=== PATIENT | male | born 1975 | race Caucasian/White ===

== ENCOUNTER 2021-04-25 09:59 | Emergency (ER) | payer OTHER ==
--- NOTE | 2021-04-25 10:06 | NUR ---
PT REPORTS TO HAVING A WOUND ON HIS BUTTOCK. WAS REQUESTING A FEMALE PROVIDER AND INFORMED AT THIS TIME THE EDMD AND ED PA ARE MALE. PT STATED HE WOULD PREFER TO LEAVE INSTEAD OF BEING SEEN. PT THEN LEFT TRIAGE AND WALKED OUT OF ED LOBBY
== END 2021-04-25 10:24 | disposition left against medical advice (07) ==
LOC: ER 09:59
DX: Z53.21 Procedure and treatment not carried out due to patient leaving prior to being seen by health care provider (principal)

== ENCOUNTER 2021-04-25 13:23 | Emergency (ER) | payer SELFPAY ==
[~2021-04-25] VITALS: Ht 180.3 cm; Wt 90.9 kg
[2021-04-25 13:37] VITALS: BP 173/112
== END 2021-04-25 16:59 | disposition home or self-care (01) ==
LOC: ER 13:24
DX: S90.821A Blister (nonthermal), right foot, initial encounter (principal); S90.822A Blister (nonthermal), left foot, initial encounter; F32.A Depression, unspecified
CPT/HCPCS: 99281

== ENCOUNTER 2021-05-02 11:15 | Emergency (ER) | payer MEDICARE | END 2021-05-02 11:50 | disposition left against medical advice (07) | LOC: ER 11:38 | DX: Z53.21 Procedure and treatment not carried out due to patient leaving prior to being seen by health care provider (principal) ==

== ENCOUNTER 2021-05-14 07:19 | Emergency (ER) | payer MEDICARE ==
[~2021-05-14] VITALS: Ht 180.3 cm; Wt 81.8 kg
[2021-05-14 07:24] VITALS: BP 185/103
--- NOTE | 2021-05-14 07:30 | NUR ---
PT IS HYPERTENSIVE, REFUSES TREATMENT STATING "HIGH BP IS GOOD FOR ME."
== END 2021-05-14 08:14 | disposition left against medical advice (07) ==
LOC: ER 07:19
DX: J00 Acute nasopharyngitis [common cold] (principal); Z53.21 Procedure and treatment not carried out due to patient leaving prior to being seen by health care provider

== ENCOUNTER 2021-06-06 18:05 | Emergency (ER) | payer MEDICARE ==
[~2021-06-06] VITALS: Ht 177.8 cm; Wt 100.0 kg
[2021-06-06] MEDS ORDERED: SULF1TAB49 PO (18:13)
[2021-06-06] MEDS ORDERED: CEPH-585 PO (18:13)
== END 2021-06-06 18:45 ==
LOC: ER 18:06
DX: L03.116 Cellulitis of left lower limb (principal); R46.0 Very low level of personal hygiene; Z79.2 Long term (current) use of antibiotics; Z79.899 Other long term (current) drug therapy
CPT/HCPCS: 99283

== ENCOUNTER 2021-07-07 15:09 | Emergency (ER) | payer MEDICARE ==
[~2021-07-07] VITALS: Ht 180.3 cm; Wt 86.0 kg
[~2021-07-07 15:09] MED LIST: CEPH-585 PO
[2021-07-07 15:10] VITALS: BP 155/106
== END 2021-07-07 22:11 | disposition left against medical advice (07) ==
LOC: ER 15:09
DX: M79.672 Pain in left foot (principal); Z53.21 Procedure and treatment not carried out due to patient leaving prior to being seen by health care provider